=== PATIENT | female | born 1980 | race Caucasian/White ===

== ENCOUNTER 2021-04-20 09:08 | Day surgery (SDC) | payer OTHER ==
[~2021-04-20] VITALS: Ht 167.6 cm; Wt 111.3 kg
[~2021-04-20 09:08] MED LIST: ALBU90OI; ALBU90OI INH; ALPR1 PO; AMOX875 PO; BUPR75 PO; BUSP5 PO; Bupropion Xl150 MG PO; Buspirone HCl7.5 MG PO; CITA10S PO; CRUTCH3 USE; CYCL10 PO; Citalopram HBr40 MG PO; Flomax0.4 MG PO; HYDCHL25 PO; NAPR500 PO; Norco 5-325 Ta1 EACH PO; PENVK500 PO; PHENA200 PO; Percocet 5-3251 EACH PO; Prednisone20 MG PO; Prozac40 MG PO; RANI150; SERT50; SULTRIDS PO; Simvastatin10 MG PO; ZIPR80 PO
--- NOTE | 2021-04-20 09:55 | NUR ---
History, Chart, Medications and Allergies reviewed before start of procedure.Patient confirms NPO status and agrees with scheduled surgery. Pre-Op teaching done. Pt verbalizes understanding. Patient States Post-Procedure ride home has been arranged.
--- NOTE | 2021-04-20 12:20 | NUR ---
04/20/21 1220 Poncho Molina History, Chart, Medications and Allergies reviewed before start of procedure.MONITOR INTACT WITH CONTINUOUS PULSE OXIMETRY AND INTERMITTENT BP. EKG MONITORED DURING PROCEDURE. O2 VIA N/C INTACT THROUGHOUT SEDATION/PROCEDURE.Bite Block Placed. See Anesthesia record/DR WARD.
--- NOTE | 2021-04-20 13:09 | NUR ---
PT SITTING UP IN BED, VISITING WITH NURSE AT BEDSIDE. PT HAS A NON PRODUCTIVE COUGH THAT CLEARS WHEN SHE SITS UP.
--- NOTE | 2021-04-20 13:17 | NUR ---
Discharge instructions reviewed with patient. Patient verbalizes understanding. Patient up to Ambulate independently. Gait steady. Patient States Post-Procedure ride home has been arranged. Discharged via wheelchair to private car for ride home. ALL BELONGINGS RETURNED TO PATIENT THAT SHE CAME TO STEPDOWN UNIT WITH.
== END 2021-04-20 23:04 | disposition home or self-care (01) ==
LOC: ORSCMMR 09:08
DX: K92.1 Melena (principal); R11.2 Nausea with vomiting, unspecified; R10.11 Right upper quadrant pain; B96.81 Helicobacter pylori [H. pylori] as the cause of diseases classified elsewhere; K21.9 Gastro-esophageal reflux disease without esophagitis; J45.909 Unspecified asthma, uncomplicated; F41.9 Anxiety disorder, unspecified; K64.4 Residual hemorrhoidal skin tags; K44.9 Diaphragmatic hernia without obstruction or gangrene; K64.8 Other hemorrhoids; E66.9 Obesity, unspecified; Z68.39 Body mass index [BMI] 39.0-39.9, adult; Z79.899 Other long term (current) drug therapy
CPT/HCPCS: 88305; 88342; J2704; J7120